=== PATIENT | male | born 1960 | race Caucasian/White ===

== ENCOUNTER 2018-01-12 13:30 | Emergency (ER) | payer BC ==
[2018-01-12] MEDS ORDERED: NS 0.9% 1000 ML* 1,000 ML IV ONE (14:08)
[2018-01-12] MEDS ORDERED: Ondansetron INJ* 2 MG/ML VIAL IV ONE (14:08)
--- NOTE | 2018-01-12 14:33 | RAD ---
Indication: Shortness of breath. Single frontal view of the chest performed at 1420 hours was reviewed. Comparison is made with previous exam dated May 22, 2009. No mediastinal shift is noted. Heart is of normal size and configuration. Lung betancourt appear clear. IMPRESSION: NO ACTIVE CARDIOPULMONARY DISEASE IS NOTED.
[2018-01-12 14:35] LABS: ABS Basophils 0.1 10^3/ul (0-0.2); ABS Eosinophils 0.1 10^3/ul (0-0.6); ABS Lymphocytes 1.3 10^3/ul (1.0-4.8); ABS Monocytes 1.2 10^3/ul (0-0.8); ABS Neutrophils 11.9 10^3/ul (1.5-7.7); ABS Nucleated RBC 0 10^3/ul; Eosinophil % 0.4 % (0-6); Hematocrit 43 % (42-52); Hemoglobin 14.7 g/dl (14.0-18.0); Lymphocyte % 8.7 % (25-47); Mean Corpuscular HGB Conc 34 g/dl (31-36); Mean Corpuscular Hemoglobin 31 pg (27-31); Mean Corpuscular Volume 92 fL (80-94); Mean Platelet Volume 7 um3 (7.4-10.4); Nucleated Red Blood Cells % 0; Platelet Count 192 10^3/ul (150-450); Red Blood Count 4.68 10^6/ul (4.0-5.4); Red Cell Distribution Width 14 % (10.5-15); White Blood Count 14.4 10^3/ul (3.5-10.8)
[2018-01-12 14:52] LABS: EGFR Non-African American 46.4 (>60)
[2018-01-12 15:14] LABS: INR 1.02 (0.77-1.02)
[2018-01-12] MEDS ORDERED: Aspirin TAB* 325 MG PO ONE (15:15)
[2018-01-12] MEDS ORDERED: Aspirin Low Dose CHEW TAB* 81 MG ONE (15:16)
[2018-01-12] MEDS ORDERED: Lidocaine 2% VISCOUS* 15 ML UDC PO ONE (15:45)
[2018-01-12] MEDS ORDERED: Iodixanol* (CONTRAST) 320 MG/ML 100 ML SDV IV ONE ×2 (16:02→16:26)
[2018-01-12] MEDS ORDERED: Morphine INJ* 2 MG/ML 1 ML CARPUJECT IV ONE (16:27)
[2018-01-12] MEDS ORDERED: LORazepam INJ* 2 MG/ML 1 ML VIAL IV PUSH ONE (16:28)
[2018-01-12] MEDS ORDERED: Atropine SYRINGE* 0.1 MG/ML 10 ML SYRINGE (1 MG) ONE (16:42)
--- NOTE | 2018-01-12 16:44 | ED ---
Neela Harrison Gabriel, scribed for Nima Hampton MD on 01/12/18 at 1343 . Respiratory - HPI Summary HPI Summary: This patient is a 57 year old M BIBA to [facility] with a chief complaint of trouble breathing due to throat tightness since earlier today. Patient reports dizziness , diaphoresis, calf cramps, vomiting, and SOB. Patient denies recent medication changes and throat pain. Symptoms began while sitting. It is difficult to get history from patient. - History of Current Complaint Stated Complaint: DIZZINESS,THROAT TIGHTNESS Hx Obtained From: Patient Onset/Duration: Lasting Hours, Still Present Timing: Constant Initial Severity: Moderate Current Severity: Moderate Associated Signs and Symptoms: SOB, Diaphoresis, Dizziness - Allergy/Home Medications Allergies/Adverse Reactions: Allergies Allergy/AdvReac Type Severity Reaction Status Date / Time No Known Allergies Allergy Unknown Verified 01/12/18 13:54 Reaction Details Home Medications: Home Medications Lisinopril/HCTZ 20/25(NF) [Zestoretic 20/25(NF)] 1 tab PO DAILY 01/12/18 [ History Confirmed 01/12/18] amLODIPine TAB* [Norvasc 5 mg TAB*] 5 mg PO DAILY 01/12/18 [History Confirmed ] PMH/Surg Hx/FS Hx/Imm Hx Endocrine/Hematology History: Denies: Hx Anticoagulant Therapy, Hx Bone Marrow Disease, Hx Diabetes Cardiovascular History: Reports: Hx Hypertension Denies: Hx Aneurysm, Hx Angina, Hx Angioplasty Musculoskeletal History: Denies: Hx Arthritis - Family History Known Family History: Positive: Hypertension Review of Systems Positive: Skin Diaphoresis ENT: Other - throat tightness and trouble breathing Negative: Sore Throat Positive: Shortness Of Breath Positive: Vomiting Positive: Other - calf cramps Neurological: Other - dizziness All Other Systems Reviewed And Are Negative: Yes Physical Exam - Summary Physical Exam Summary: Appearance: The patient is well-nourished in no acute distress and in no acute pain. Skin: The skin is warm and slightly diaphoretic HEENT: The head is normocephalic and atraumatic. The pupils are equal and reactive. The conjunctivae are clear and without drainage. Nares are patent and without drainage. Mouth reveals moist mucous membranes and the throat is without erythema and exudate. The external ears are intact. The ear canals are patent and without drainage. The tympanic membranes are intact. Neck: the neck is supple with full range of motion and non-tender. There are no carotid bruits. There is no neck vein distension. Respiratory: Chest is non-tender. Tachypnea Cardiovascular: bradycardic and irregular. There is no murmur or rub auscultated. There is no peripheral edema and pulses are symmetrical and equal. Abdomen: The abdomen is soft and non-tender. There are normal bowel sounds heard in all four quadrants and there is no organomegaly palpated. Musculoskeletal: There is no back tenderness noted. Extremities are non-tender with full range of motion. There is good capillary refill. There is no peripheral edema or calf tenderness elicited. Neurological: Patient is alert and oriented to person, place and time. The patient has symmetrical motor strength in all four extremities. Cranial nerves are grossly intact. Deep tendon reflexes are symmetrical and equal in all four extremities. Psychiatric: The patient has an appropriate affect and does not exhibit any anxiety or depression. Triage Information Reviewed: Yes Vital Signs On Initial Exam: Initial Vitals Temp Pulse Resp BP Pulse Ox 96.1 F 59 16 101/58 96 01/12/18 13:35 01/12/18 13:35 01/12/18 13:35 01/12/18 13:35 01/12/18 13:35 Vital Signs Reviewed: Yes Diagnostics - Vital Signs Vital Signs Temp Pulse Resp BP Pulse Ox 01/12/18 16:35 16 01/12/18 15:30 32 18 98/36 90 01/12/18 15:27 43 21 90/44 89 01/12/18 15:00 41 18 105/39 90 01/12/18 14:49 66 16 93 01/12/18 14:19 97 01/12/18 14:00 61 152/113 99 01/12/18 13:53 92 15 90 01/12/18 13:35 96.1 F 59 16 101/58 96 - Laboratory Lab Results: Lab Results 01/12/18 01/12/18 01/12/18 Range/Units 14:23 14:23 14:23 WBC 14.4 H (3.5-10.8) 10^3/ul RBC 4.68 (4.0-5.4) 10^6/ul Hgb 14.7 (14.0-18.0) g/dl Hct 43 (42-52) % MCV 92 (80-94) fL MCH 31 (27-31) pg MCHC 34 (31-36) g/dl RDW 14 (10.5-15) % Plt Count 192 (150-450) 10^3/ul MPV 7 L (7.4-10.4) um3 Neut % (Auto) 82.3 (38-83) % Lymph % (Auto) 8.7 L (25-47) % Collier % (Auto) 8.0 H (0-7) % Eos % (Auto) 0.4 (0-6) % Baso % (Auto) 0.6 (0-2) % Absolute Neuts (auto) 11.9 H (1.5-7.7) 10^3/ul Absolute Lymphs (auto) 1.3 (1.0-4.8) 10^3/ul Absolute Monos (auto) 1.2 H (0-0.8) 10^3/ul Absolute Eos (auto) 0.1 (0-0.6) 10^3/ul Absolute Basos (auto) 0.1 (0-0.2) 10^3/ul Absolute Nucleated RBC 0 10^3/ul Nucleated RBC % 0 INR (Anticoag Therapy) (0.77-1.02) D-Dimer, Quantitative (Less Than 230) ng/mL Sodium 140 (133-145) mmol/L Potassium 3.2 L (3.5-5.0) mmol/L Chloride 104 (101-111) mmol/L Carbon Dioxide 29 (22-32) mmol/L Anion Gap 7 (2-11) mmol/L BUN 21 (6-24) mg/dL Creatinine 1.55 H (0.67-1.17) mg/dL Est GFR ( Amer) 59.7 (>60) Est GFR (Non-Af Amer) 46.4 (>60) BUN/Creatinine Ratio 13.5 (8-20) Glucose 127 H (70-100) mg/dL Lactic Acid 3.1 H* (0.5-2.0) mmol/L Calcium 9.0 (8.6-10.3) mg/dL Total Bilirubin 0.40 (0.2-1.0) mg/dL AST 16 (13-39) U/L ALT 17 (7-52) U/L Alkaline Phosphatase 54 (34-104) U/L Troponin I 0.03 (<0.04) ng/mL C-Reactive Protein < 1.00 (< 5.00) mg/L B-Natriuretic Peptide ( - 100) pg/mL Total Protein 6.4 (6.4-8.9) g/dL Albumin 3.6 (3.2-5.2) g/dL Globulin 2.8 (2-4) g/dL Albumin/Globulin Ratio 1.3 (1-3) 01/12/18 01/12/18 Range/Units 14:23 14:23 WBC (3.5-10.8) 10^3/ul RBC (4.0-5.4) 10^6/ul Hgb (14.0-18.0) g/dl Hct (42-52) % MCV (80-94) fL MCH (27-31) pg MCHC (31-36) g/dl RDW (10.5-15) % Plt Count (150-450) 10^3/ul MPV (7.4-10.4) um3 Neut % (Auto) (38-83) % Lymph % (Auto) (25-47) % Collier % (Auto) (0-7) % Eos % (Auto) (0-6) % Baso % (Auto) (0-2) % Absolute Neuts (auto) (1.5-7.7) 10^3/ul Absolute Lymphs (auto) (1.0-4.8) 10^3/ul Absolute Monos (auto) (0-0.8) 10^3/ul Absolute Eos (auto) (0-0.6) 10^3/ul Absolute Basos (auto) (0-0.2) 10^3/ul Absolute Nucleated RBC 10^3/ul Nucleated RBC % INR (Anticoag Therapy) 1.02 (0.77-1.02) D-Dimer, Quantitative > 1050 H (Less Than 230) ng/mL Sodium (133-145) mmol/L Potassium (3.5-5.0) mmol/L Chloride (101-111) mmol/L Carbon Dioxide (22-32) mmol/L Anion Gap (2-11) mmol/L BUN (6-24) mg/dL Creatinine (0.67-1.17) mg/dL Est GFR ( Amer) (>60) Est GFR (Non-Af Amer) (>60) BUN/Creatinine Ratio (8-20) Glucose (70-100) mg/dL Lactic Acid (0.5-2.0) mmol/L Calcium (8.6-10.3) mg/dL Total Bilirubin (0.2-1.0) mg/dL AST (13-39) U/L ALT (7-52) U/L Alkaline Phosphatase (34-104) U/L Troponin I (<0.04) ng/mL C-Reactive Protein (< 5.00) mg/L B-Natriuretic Peptide 37 ( - 100) pg/mL Total Protein (6.4-8.9) g/dL Albumin (3.2-5.2) g/dL Globulin (2-4) g/dL Albumin/Globulin Ratio (1-3) Result Diagrams: 01/12/18 14:23 01/12/18 14:23 Lab Statement: Any lab studies that have been ordered have been reviewed, and results considered in the medical decision making process. - Radiology CXR Radiology Interpretation Completed By: Radiologist - NO ACTIVE CARDIOPULMONARY DISEASE IS NOTED. ED physician has reviewed this radiology report. Disposition - Course Course Of Treatment: Mr. Jones presented with vague throat fullness and SOB. He was obviously anxious and difficult to get a history from. He denied CP or back pain. Intitial ECG showed a sinus bradycardia with T-wave inversions anteriorly. His initial labs were unremarkable with a trop of 0.03 and negative portable CXR. He then got diaphoretic and began to C/O chest pressure and ECG was repeated with very little change. Dr. Chaves was consulted and came to the ED to see the patient. Bedside echo showed an ascending aortic dissection and Dr. Reed at [facility] was contacted while the patient was in the CT scanner and accepted transfer. His SBP was 100 - 110 the whole time he was here and his HR varied from 35-60. - Diagnoses Provider Diagnoses: Ascending aortic dissection - Physician Notifications Discussed Care Of Patient With: Cole Chaves Time Discussed With Above Provider: 15:33 Instructed by Provider To: Other - I discussed patient care with Dr. Chaves and he will come see the patient. - Critical Care Time Critical Care Time: 30-74 min Discharge - Discharge Plan Condition: Guarded Disposition: TRANS HIGHER LVL OF CARE FAC Referrals: Landen Yadav MD [Primary Care Provider] - Consult Consult: 15:35 I discussed patient care with Dr. Chaves and he will come see the patient. 15:[address] Chaves saw the patient he recommend transferring the patient to [facility] for an ascending aortic dissection. 1555 I discussed patient care with Dr. Ireland from the [facility] and they did not accept the patient for transfer 16:20 I discussed transferring the patient with [facility] and they have accepted the patient for transfer. The documentation as recorded by the Neela brar Gabriel accurately reflects the service I personally performed and the decisions made by me, Nima Hampton MD.
[2018-01-12 16:51] VITALS: BP 105/39
--- NOTE | 2018-01-12 17:00 | RAD ---
INDICATION: Chest pain. Assess for aortic dissection. COMPARISON: January 12, 2018 chest radiograph. TECHNIQUE: Multidetector CT images were obtained from the lung apices to the ischial tuberosities with Visipaque 320 IV contrast. No oral contrast administered. Aortic dissection protocol. Multiplanar reformation with maximum intensity projection. CHEST REPORT: Minimal bilateral subsegmental atelectasis. No alveolar consolidation concerning for pneumonia, focal pulmonary lesion, pleural effusions, or pneumothorax. There is dissection of the thoracic aorta involving the ascending and descending segments as well as the aortic arch branch vessels. There is distal propagation of the dissection into the abdominal aorta and bilateral iliac arteries. The thoracic aorta measures up to 4.4 cm diameter at the sinotubular junction, 5.0 cm diameter in the ascending segment at the level of the main pulmonary artery, 3.5 cm at the proximal arch, 2.7 cm at the distal arch, and 2.8 cm at the distal descending segment. The more intensely contrast opacified true lumen demonstrates significant partial compression by the false lumen. A small volume of near fluid density fluid is visualized approximating the descending aorta through the proximal arch. No ez contrast extravasation evident. Negative for cardiomegaly or pericardial effusion. 1 cm sclerotic lesion at the anterior margin of the T12 vertebral body is unchanged compared with the radiographic exam from May 22, 2009 consistent with a benign bone island. CHEST IMPRESSION: 1. [place] A aortic dissection with distal extension to the abdominal aorta and iliac arteries. A small volume of near fluid density fluid is visualized approximating the descending aorta through the proximal arch. No ez contrast extravasation evident. 2. Aneurysm of the ascending thoracic aorta measuring up to 5 cm diameter. ABDOMEN PELVIS REPORT: Arterial phase of contrast enhancement limits assessment of the abdominal viscera. No abnormality of the liver, gallbladder, pancreas, or spleen evident. Small hiatal hernia. Moderate diverticulosis of the colon without findings of diverticulitis. Normal appendix. Negative for ascites. Small broad mouth umbilical hernia containing a small bowel loop without evidence for inflammation or obstruction. Small fat-containing indirect appearing LEFT inguinal hernia without inflammatory change. Normal adrenal glands. Symmetric arterial phase enhancement of the kidneys. Small cortical cyst at the upper pole of the RIGHT kidney. Negative for hydronephrosis. Unremarkable ureters. Decompressed urinary bladder limiting assessment. Symmetric seminal vesicles. Negative for lymphadenopathy. Diffuse dissection of the aorta as described in the chest report with extension to the bilateral common, internal, and external iliac arteries proximally. Negative for aneurysm of the abdominal aorta upper normal diameter of the common iliac arteries measuring up to 1.5 cm bilaterally. Normal contrast opacification of the celiac axis, superior mesenteric artery, and RIGHT renal artery from the true lumen. The LEFT renal artery demonstrates less intense contrast opacification and arises from the false lumen. Opacified inferior mesenteric artery arises from the true lumen. The more intensely contrast opacified true lumen demonstrates significant partial compression by the false lumen. Physiologic distention of the IVC. No suspicious osseous lesions evident. ABDOMEN PELVIS IMPRESSION: 1.[place] A aortic dissection with distal extension to the abdominal aorta and iliac arteries. A small volume of near fluid density fluid is visualized approximating the descending aorta through the proximal arch. No ez contrast extravasation evident. 2. Negative for aneurysm of the abdominal aorta. Results discussed with Dr. Hampton 01/12/2018 4:43 PM EST
--- NOTE | 2018-01-12 22:29 | CONS ---
CARDIOLOGY CONSULTATION REPORT: DATE OF CONSULT: 01/12/18 - EMERGENCY DEPT INDICATION FOR CONSULT: Chest pain and abnormal EKG. HISTORY OF PRESENT ILLNESS: The patient is a 57-year-old gentleman with a history of hypertension who came to the emergency room because of throat discomfort that radiated down to his chest. The patient states that approximately 20 minutes before he called the ambulance, he started having throat discomfort. He said it was a pressure and pain in his throat and it radiated down into his chest. It became 8/10 and he became diaphoretic. At that time, he called 911 and the ambulance was there. They brought him to the emergency room. On arrival to the emergency room, the patient was complaining of trouble breathing, shortness of breath, diaphoresis and chest discomfort. Initial EKG demonstrates normal sinus rhythm with T-wave flattening and inversion in the lateral leads. He did have a prolonged QT. I was called and asked to evaluate this patient because of chest pain. When I arrived to the emergency room, the patient was very uncomfortable. He was mildly diaphoretic. He was complaining of shortness of breath. He could not lie still because of the chest discomfort. His heart rate was 50. His blood pressure was 90/50. At that time, I asked for an urgent echo-cardiogram. The echocardiogram showed normal LV size with systolic function, normal valves, but a clear dissection to the ascending aorta. At that time, the decision was made to transfer the patient to a tertiary care facility. The patient ultimately underwent a CT angiogram, which showed a type 1 dissection starting at the aortic root and extending all the way down to the renal arteries. PAST MEDICAL HISTORY: Significant for hypertension. OUTPATIENT MEDICATIONS: 1. Lisinopril/hydrochlorothiazide 1 tablet a day. 2. Amlodipine 5 mg a day. ALLERGIES: No known drug allergies. REVIEW OF SYSTEMS: Essentially negative except for a sudden onset of epigastric and neck discomfort. The patient denies any fevers or chills. No changes in bowel or bladder habits. No changes in weight. No recent hospitalizations. PHYSICAL EXAM: Height is 61 inches, weight is 220 pounds. Heart rate was 48, blood pressure 105/39, respiratory rate is 18, oxygen saturation 98% on 2 L, temperature 97.6. Sclerae anicteric. Oropharynx is pink without erythema. Carotids are 2+ without bruits. JVD is normal. Thyroid is normal. Cardiac Exam: Distant heart sounds. S1, S2 without any obvious murmurs, rubs, or gallops. PMI is difficult to assess. Lungs are clear to auscultation bilaterally. No dullness to percussion. Abdomen is soft, nontender, and nondistended with normoactive bowel sounds. Extremities show no edema. He has 2+ pulses throughout. The patient is awake, alert, and oriented. He moves all 4 extremities equally. DIAGNOSTIC STUDIES/LAB DATA: White count within normal limits. Chemistries within normal limits. Potassium was a little low at 3.2, BUN 21, creatinine 1.5. BNP was 37. D-dimer was greater than 1000. IMPRESSION AND PLAN: This is a 57-year-old gentleman with a history of hypertension who was admitted to the hospital with chest pain. The patient was very uncomfortable. When I saw him, he was diaphoretic. He could not lie still. Ultimately, the patient was diagnosed with an aortic dissection and transferred to a tertiary care facility. I spent approximately an hour and a half with this patient in his care, about a hour of that was critical care time given his bradycardia and hypotension. Case was discussed with Dr. Kamran Hampton and with Dr. Gab Banegas at [place], [place]. [id number]/[facility] #: [id number] MTDD
== END 2018-01-12 17:18 | disposition short-term general hospital (02) ==
LOC: ED 13:30
DX: I71.01 Dissection of thoracic aorta (principal); R07.9 Chest pain, unspecified; R06.02 Shortness of breath; Z86.79 Personal history of other diseases of the circulatory system
CPT/HCPCS: 36415; 71045; 71275; 74174; 80053; 83605; 83880; 84484; 85025; 85379; 85610; 86140; 93005; 93306; 96374; 96375; 99285; A9270-GY; J0461; J2060; J2270; J2405; Q9967